=== PATIENT | male | born 1980 | race American Indian/Alaskan Native ===

== ENCOUNTER 2023-02-15 22:20 | Observation (INO) | payer BC, MEDICAID, OTHER, SELFPAY ==
[2023-02-15] MEDS ORDERED: Ibuprofen 200 MG Tab PO ONE (23:06)
[2023-02-15] MEDS ORDERED: Sodium Chloride 0.9% 1,000 ML IV ONE (23:48)
[2023-02-15] MEDS ORDERED: Sodium Chloride 0.9% 10 ML Syringe FLUSH PRN (23:48)
[2023-02-16] MEDS ORDERED: cefTRIAXone 1 GM Vial IVPUSH ONE (00:13)
[2023-02-16] MEDS ORDERED: Ondansetron 4 MG Tab.DIS PO PRN (00:36)
[2023-02-16] MEDS ORDERED: Docusate Sodium 100 MG Cap PO PRN (00:36)
[2023-02-16] MEDS ORDERED: Ondansetron 4 MG/2 ML SDV IV PRN (00:36)
[2023-02-16] MEDS ORDERED: Ibuprofen 200 MG Tab PO PRN (05:00)
[2023-02-16] MEDS: Gabapentin 300 MG Cap PO SCH ×2 (07:59→14:25)
[2023-02-16 14:52] VITALS: BP 121/80; PULSE 72
[2023-02-16] MEDS ORDERED: cefTRIAXone 1 GM Vial IVPUSH SCH (15:00)
[2023-02-18 13:47] LABS: C.TRACHOMATIS BY TMA Negative (Negative); N.GONORRHOEAE BY TMA Negative (Negative)
== END 2023-02-16 15:02 | disposition home or self-care (01) ==
LOC: CC.ED 22:20 → CC.MS 02-16 00:10
PROVIDERS: ADMIT Nurse Practitioner Family; ATTEND Nurse Practitioner Family
DX: N45.2 Orchitis (principal); Z79.899 Other long term (current) drug therapy
CPT/HCPCS: 36415; 76870; 80053; 81001; 83605; 83735; 85025; 87491; 87591; 96361; 96374; 96376; 99285-25; A9270-GY; G0378; J0696; J7030

== ENCOUNTER 2024-10-26 16:12 | Emergency (ER) | payer SELFPAY ==
[2024-10-26 16:15] VITALS: BP 147/103; PULSE 101
== END 2024-10-26 16:33 | disposition home or self-care (01) ==
LOC: CC.ED 16:12
DX: J03.90 Acute tonsillitis, unspecified (principal); I10 Essential (primary) hypertension; F17.210 Nicotine dependence, cigarettes, uncomplicated; Z88.5 Allergy status to narcotic agent; Z88.8 Allergy status to other drugs, medicaments and biological substances; Z79.899 Other long term (current) drug therapy
CPT/HCPCS: 99282